=== PATIENT | male | born 1990 | race American Indian/Alaskan Native ===

== ENCOUNTER 2017-12-09 19:32 | Emergency (ER) | payer OTHER, BC ==
[2017-12-09 20:27] VITALS: BP 165/106
--- NOTE | 2017-12-09 20:59 | Cat Scan Report ---
FINAL REPORT EXAM: CT HEAD/BRAIN WO CON HISTORY: headache and neck pain TECHNIQUE: 2.5 millimeter axial images from the skullbase to the vertex. Comparison: None FINDINGS: There is no evidence of an acute intracranial process, intracranial hemorrhage or mass effect. The ventricles are normal size. The visualized portions of the orbits, paranasal and mastoid sinuses are notable for moderate bilateral ethmoid sinus mucosal thickening. The bony structures are unremarkable in appearance. There appears to be moderate prominence of the adenoids. IMPRESSION: 1. No evidence of an acute intracranial process, intracranial hemorrhage or mass effect. 2. Moderate bilateral ethmoid sinus mucosal thickening. 3. Appearance of moderate prominence of the adenoids.
--- NOTE | 2017-12-09 21:04 | Cat Scan Report ---
FINAL REPORT EXAM: CT CERVICAL SPINE WO CON HISTORY: headache and neck pain TECHNIQUE: Axial helical imaging through the cervical spine with sagittal and coronal reformatted images obtained. Comparison: None FINDINGS: There is mild reversal of the normal lordotic curve of the cervical spine. This may be positional in nature. The vertebral heights and disc spaces are maintained. 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 There is no evidence of bony canal or foraminal stenosis. Visualization detail the contents of the cervical canal is limited by artifact. There is no evidence of fracture or subluxation. The paraspinous soft tissues are unremarkable. There appears to be moderate prominence of the adenoids. IMPRESSION: 1. No evidence of fracture or subluxation. 2. 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 3. Appearance of moderate prominence of the adenoids. If the patient remains symptomatic and if further imaging is required, MRI may be helpful.
[2017-12-09] MEDS ORDERED: NORCO 7.5/325 PO ONE (21:19)
[2017-12-09] MEDS ORDERED: MOTRIN PO ONE (21:19)
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
--- NOTE | 2017-12-09 22:16 | XRay Report ---
FINAL REPORT EXAM: XR SPINE LUMBOSACRAL 2-3V HISTORY: lower back pain TECHNIQUE: Frontal and lateral views lumbar spine and coned-down lateral view lumbosacral junction Comparison: None FINDINGS: There is mild levocurvature of the lumbar spine. The vertebral heights and disc spaces are maintained. There is no evidence of fracture or subluxation. The paraspinous soft tissues are unremarkable. Surgical clips are demonstrated in the upper abdomen IMPRESSION: . 1. Mild levocurvature lumbar spine. 2. No evidence of fracture or subluxation. 3. Postsurgical change upper abdomen.
--- NOTE | 2017-12-09 22:37 | XRay Report ---
FINAL REPORT EXAM: XR CHEST ROUTINE 2V HISTORY: chest pain TECHNIQUE: PA and lateral views of the chest Comparison: None FINDINGS: There is no evidence of infiltrate, pneumothorax or pleural fluid collection. The cardiomediastinal silhouette is normal in appearance. There is an approximately 4 millimeter probable calcified granuloma in the right midlung field. The bony structures are unremarkable. Surgical clips are projected in the upper abdomen. IMPRESSION: 1. No evidence of an acute pulmonary process. 2. Surgical clips projected in the upper abdomen.
== END 2017-12-09 22:09 | disposition home or self-care (01) ==
LOC: ED 19:32
DX: S16.1XXA Strain of muscle, fascia and tendon at neck level, initial encounter (principal); S39.012A Strain of muscle, fascia and tendon of lower back, initial encounter; R07.89 Other chest pain; R51 Headache; I10 Essential (primary) hypertension; Z90.49 Acquired absence of other specified parts of digestive tract; V89.2XXA Person injured in unspecified motor-vehicle accident, traffic, initial encounter; Y93.89 Activity, other specified; Y92.488 Other paved roadways as the place of occurrence of the external cause; Y99.8 Other external cause status
CPT/HCPCS: 70450; 71046; 72100; 72125; 93005; 93010; 99284

== ENCOUNTER 2021-05-05 13:27 | Emergency (ER) | payer BC ==
[2021-05-05 13:51] VITALS: BP 170/120
--- NOTE | 2021-05-05 13:54 | Event Note ---
ED Screening Note Date of service: 05/05/21 Time: 13:53 ED Screening Note: 30-year-old male presents emerged department chief complaint of left shoulder, left-sided neck pain and some numbness in the anterior left arm. He denies any weakness. He denies any injuries. States he woke up with this around 4 AM. On exam the patient has an NIH of 0. No focal neurologic deficits. He has pain with Spurling sign. He has pain with range of motion of the left shoulder. This initial assessment/diagnostic orders/clinical plan/treatment(s) is/are subject to change based on patients health status, clinical progression and re- assessment by fellow clinical providers in the ED. Further treatment and workup at subsequent clinical providers discretion. Patient/guardian urged not to elope from the ED as their condition may be serious if not clinically assessed and managed. Initial orders include:
[2021-05-05] MEDS ORDERED: DEXAMETHASONE 4 MG TAB PO ONE (14:24)
--- NOTE | 2021-05-05 15:07 | Cat Scan Report ---
CT head/brain wo con INDICATION: acute left arm numbness and headache SINCE THIS MORNING . TECHNIQUE: Routine CT head without contrast. All CT scans at this location are performed using CT dos e reduction for ALARA by means of automated exposure control. COMPARISON: Head CT on 12/10/2017 FINDINGS: BRAIN / INTRACRANIAL CONTENTS: No acute hemorrhage, mass effect, midline shift, or hydrocephalus. No appreciable acute large territorial or lacunar infarct. No chronic infarct or focal atrophy. Normal b rain volume and ventricular/sulcal size for age. ORBITS: No significant abnormality of visualized orbits. SINUSES / MASTOIDS: No significant abnormality of visualized sinuses and mastoid air cells. ADDITIONAL FINDINGS: None. IMPRESSION: 1. No acute intracranial abnormality. No adverse change from the prior exam. Signer Name: Jerome Jones MD Signed: 05/05/2021 3:03 PM Workstation Name: [id number]
--- NOTE | 2021-05-05 15:10 | Emergency Department Report ---
ED General Adult HPI - General Chief complaint: Neuro Symptoms/Deficit Stated complaint: NUMBNESS LEFT ARM Time Seen by Provider: 05/05/21 14:11 Source: patient Mode of arrival: Ambulatory Limitations: No Limitations - History of Present Illness Initial comments: 30-year-old male presents emerged department chief complaint of left shoulder, left-sided neck pain and some numbness in the anterior left arm. He denies any weakness. He denies any injuries. States he woke up with this around 4 AM. Patient states the pain worsens to touch and with movement. No fever/chills/sweats, chest pain, shortness of breath, dizziness, vision changes, difficulty with speech/ambulation, or weakness in his limbs per patient. Patient states he called his PCP this morning about the pain and was informed to seek emergency treatment due to his blood pressure being elevated. He does have history of hypertension and states his BP meds were changed 1 month ago. He states his diastolic runs in the high 90s, however he is unsure of his normal systolic pressure. Patient also states he has been having intermittent headaches and admits to a mild headache at current. No history of CVA per patient Severity scale (0 -10): 8 - Related Data Previous Rx's Medication Instructions Recorded Last Taken Type HYDROcodone/APAP 5-325 [[place] 1 each PO Q4HR PRN #12 tablet 12/09/17 Unknown Rx 5/325] Ibuprofen [Motrin] 600 mg PO Q8H PRN #20 tablet 12/09/17 Unknown Rx methOCARBAMOL [Robaxin TAB] 500 mg PO Q6H PRN #15 tablet 12/09/17 Unknown Rx Naproxen [Naprosyn TAB] 500 mg PO BID PRN #20 tablet 05/05/21 Unknown Rx methOCARBAMOL [Robaxin TAB] 750 - 1,500 mg PO TID PRN #30 05/05/21 Unknown Rx tablet Allergies Allergy/AdvReac Type Severity Reaction Status Date / Time No Known Allergies Allergy Unverified 12/09/17 20:27 ED Review of Systems ROS: Stated complaint: NUMBNESS LEFT ARM Other details as noted in HPI Constitutional: denies: chills, fever Respiratory: denies: cough Cardiovascular: denies: chest pain Gastrointestinal: denies: abdominal pain Neurological: as per HPI. denies: abnormal gait Hematological/Lymphatic: denies: easy bleeding, easy bruising, swollen glands ED Past Medical Hx - Past Medical History Hx Hypertension: Yes - Surgical History Hx Appendectomy: Yes Additional Surgical History: Adrenal glands removal - Social History Smoking Status: Never Smoker Substance Use Type: None - Medications Home Medications: Home Medications Medication Instructions Recorded Confirmed Last Taken Type HYDROcodone/APAP 5-325 [[place] 1 each PO Q4HR PRN #12 tablet 12/09/17 Unknown Rx 5/325] Ibuprofen [Motrin] 600 mg PO Q8H PRN #20 tablet 12/09/17 Unknown Rx methOCARBAMOL [Robaxin TAB] 500 mg PO Q6H PRN #15 tablet 12/09/17 Unknown Rx Naproxen [Naprosyn TAB] 500 mg PO BID PRN #20 tablet 05/05/21 Unknown Rx methOCARBAMOL [Robaxin TAB] 750 - 1,500 mg PO TID PRN #30 05/05/21 Unknown Rx tablet ED Physical Exam - General Limitations: No Limitations General appearance: alert, in no apparent distress - Head Head exam: Present: atraumatic, normocephalic - Eye Eye exam: Present: normal appearance, PERRL, EOMI - Neck Neck exam: Present: tenderness (Left trapezius muscle; no vertebral tenderness to palpation), full ROM - Respiratory Respiratory exam: Present: normal lung sounds bilaterally. Absent: respiratory distress - Cardiovascular Cardiovascular Exam: Present: regular rate, normal rhythm - Expanded Upper Extremity Exam Left Shoulder Exam: Present: full ROM, tenderness (Humeral head, mild). Absent: deformity Vascular: Absent: vascular compromise - Neurological Exam Neurological exam: Present: alert, oriented X3, CN II-XII intact, normal gait - Expanded Neurological Exam Expanded Cerebellar function: Finger to Nose: Normal, Heel to Rios: Normal, Romberg: Normal Sensory exam: Upper Extremity Light Touch: Normal, Lower Extremity Light Touch: Abnormal Left (Mildly decreased sensation in upper and lower arm; normal sensation to the lateral portion of the elbow) Motor strength exam: RUE: 4, LUE: 4, RLE: 4, LLE: 4 Best Eye Response ([place]): (4) open spontaneously Best Motor Response ([place]): (6) obeys commands Best Verbal Response ([place]): (5) oriented [place] Total: 15 - Psychiatric Psychiatric exam: Present: normal affect, normal mood - Skin Skin exam: Present: warm, dry, intact, normal color. Absent: rash ED Course Vital Signs 05/05/21 13:42 Temperature 98.0 F Pulse Rate 96 H Respiratory 18 Rate Blood Pressure 170/120 [Right] O2 Sat by Pulse 99 Oximetry ED Medical Decision Making - Radiology Data Radiology results: report reviewed CT head/brain wo con INDICATION: acute left arm numbness and headache SINCE THIS MORNING . TECHNIQUE: Routine CT head without contrast. All CT scans at this location are performed using CT dose reduction for [place] by means of automated exposure control. COMPARISON: Head CT on 12/10/2017 FINDINGS: BRAIN / INTRACRANIAL CONTENTS: No acute hemorrhage, mass effect, midline shift, or hydrocephalus. No appreciable acute large territorial or lacunar infarct. No chronic infarct or focal atrophy. Normal brain volume and ventricular/sulcal size for age. ORBITS: No significant abnormality of visualized orbits. SINUSES / MASTOIDS: No significant abnormality of visualized sinuses and mastoid air cells. ADDITIONAL FINDINGS: None. IMPRESSION: 1. No acute intracranial abnormality. No adverse change from the prior exam. - Medical Decision Making 30-year-old male presents emerged department chief complaint of left shoulder, left-sided neck pain and some numbness in the anterior left arm. He denies any weakness. He denies any injuries. States he woke up with this around 4 AM. Patient states the pain worsens to touch and with movement. No fever/chills/sweats, chest pain, shortness of breath, dizziness, vision changes, difficulty with speech/ambulation, or weakness in his limbs per patient. Patient states he called his PCP this morning about the pain and was informed to seek emergency treatment due to his blood pressure being elevated. He does have history of hypertension and states his BP meds were changed 1 month ago. He states his diastolic runs in the high 90s, however he is unsure of his normal systolic pressure. Patient also states he has been having intermittent headaches and admits to a mild headache at current. No history of CVA per patient Blood pressure improved to 155/115, patient states this is a normal blood pressure for him. NIHSS = 1 given mild left arm decreased sensation on exam. He is otherwise neurologically intact. Given elevated blood pressure and recurrent headaches, CT head was performed and is negative for any acute abnormalities. + Spurling test on exam. Symptoms appear to be due to cervical radiculopathy. Patient given Decadron and Robaxin and states his symptoms have improved. Recommend he follows up with his PCP within 3 to 5 days. Patient to treat with icing, stretching, and NSAIDs at home. He is otherwise well-appearing, his vitals are stable, he is stable for discharge. Strict return precautions discussed in detail with patient who verbalizes understanding Critical care attestation.: If time is entered above; I have spent that time in minutes in the direct care of this critically ill patient, excluding procedure time. ED Disposition Clinical Impression: Neck pain Disposition: HOME / SELF CARE / HOMELESS Is pt being admited?: No Condition: Stable Instructions: Cervical Radiculopathy, [id number] Prescriptions: Naproxen [Naprosyn TAB] 500 mg PO BID PRN #20 tablet PRN Reason: pain methOCARBAMOL [Robaxin TAB] 750 - 1,500 mg PO TID PRN #30 tablet PRN Reason: muscle spasm/tightness Referrals: PRIMARY CARE, [Primary Care Provider] - 3-5 Days Forms: Work/School Release Form(ED)
== END 2021-05-05 16:14 | disposition home or self-care (01) ==
LOC: ED 13:27
DX: M54.2 Cervicalgia (principal)
CPT/HCPCS: 70450; 99283; J8540